=== PATIENT | male | born 1980 | race Caucasian/White ===

== ENCOUNTER 2016-11-21 06:58 | Emergency (ER) | payer OTHER ==
[~2016-11-21] VITALS: Ht 170.2 cm; Wt 78.3 kg
[2016-11-21 07:39] LABS: MCH 32.7 PG (29.0-34.0); MCHC 34.4 G/DL (30.0-36.0); MCV 94.9 FL (86-99); MEAN PLAT.VOLUME 10.8 uM^3 (9.0-12.4); PLATELET COUNT 203 K/uL (156-360); RBC DIS.WIDTH-CV 11.9 % (11.8-14.6); RBC DIS.WIDTH-SD 42.2 % (39-53); RED BLOOD COUNT 4.74 M/uL (4.00-5.50); WHITE BLOOD COUNT 7.6 K/uL (4.1-10.2)
[2016-11-21 07:50] LABS: GLUCOSE 95 mg/dL (70-99)
[2016-11-21 07:54] LABS: GFR ESTIMATE (CALCULATED) > 59 mL/min/
[2016-11-21 07:55] LABS: UREA NITROGEN (BUN) 10 mg/dL (9-23)
[2016-11-21 08:09] LABS: ADD MIUA? YES; BILIRUBIN NEGATIVE; BLOOD MODERATE; COLOR YELLOW ((YELLOW)); GLUCOSE (STRIP) NEGATIVE; KETONES NEGATIVE; LEUKOCYTES NEGATIVE; NITRITE NEGATIVE; PROTEIN (STRIP) NEGATIVE; SPECIFIC GRAVITY 1.011 (1.000-1.030); UROBILINOGEN 0.2 MG/DL (0.2-1.0)
[2016-11-21 08:09] LABS: ANION GAP 10 MEQ/L (2-14); CHLORIDE 103 mEq/L (99-109); POTASSIUM 4.2 mEq/L (3.7-5.4); SODIUM 137 mEq/L (136-147)
[2016-11-21 08:15] LABS: BACTERIA RARE /HPF; EPITHELIAL CELLS NONE SEEN /HPF; MUCUS TRACE /LPF; RED BLOOD CELLS 20-30 /HPF (0-5); UCUL ADDED? NO; WHITE BLOOD CELLS 0-5 /HPF (0-5)
[2016-11-21] MEDS ORDERED: ZOFRAN4 MG PO (10:00)
[2016-11-21] MEDS ORDERED: FLOMAX0.4 MG PO (10:00)
[2016-11-21] MEDS ORDERED: NAPROSYN500 MG PO (10:00)
[2016-11-21] MEDS ORDERED: PERCOCET 5/31 TABLET PO (10:00)
[2016-11-21 10:31] VITALS: BP 118/75
== END 2016-11-21 10:31 | disposition home or self-care (01) ==
LOC: EME 06:58
PROVIDERS: Nurse Practitioner Family
DX: N20.0 Calculus of kidney (principal); R31.9 Hematuria, unspecified; F17.200 Nicotine dependence, unspecified, uncomplicated
CPT/HCPCS: 74176; 76870; 80048; 81003; 85027; 99281; 99285; J1885; J2270; J2405; J7030